=== PATIENT | female | born 1975 | race Caucasian/White ===

== ENCOUNTER 2019-06-06 04:36 | Day surgery (SDC) | payer OTHER ==
[2019-05-31 14:28] VITALS: BMI 24.5
[2019-06-06] MEDS ORDERED: MIDAZOLAM HCL 2 MG/2 ML SINGLE DOSE VIAL ONE ×2 (14:04)
--- NOTE | 2019-06-06 14:39 | HP ---
Satellite [facility] - Chief Complaint Chief Complaint: right shoulder pain History of Present Illness: right shoulder impingement syndrome History Source: Patient Limitations to Obtaining History: No Limitations - Past Medical History Allergies/Adverse Reactions: Allergies Allergy/AdvReac Type Severity Reaction Status Date / Time No Known Allergies Allergy Verified 06/06/19 13:21 ...LMP: 04/19/19 - Current Medications Current Medications: Home Medications Medication Instructions Recorded Acetaminophen 500 mg PO PRN PRN 05/31/19 Benadryl Capsule - 25 mg PO HS PRN 05/31/19 Satellite Physical Exam - Physical Examination Vital Signs: Vital Signs Period Temp Pulse Resp BP Sys/Lang Pulse Ox Last 24 Hr 98.8 F 65 16 105/55 98 General Appearance: Well Nourished ENT: Clear Lung: Clear to auscultation Heart: Regular rate & rhythm Breasts: Soft Abdomen: Soft Extremities: No edema Satellite Impression/Plan - Impression/Plan Impression: right shoulder impingement syndrome Operative Procedure: right shoulder arthroscopy, decompression Date to be Performed: 06/06/19
[2019-06-06] MEDS ORDERED: PROPOFOL 20 ML ONE ×4 (14:46→16:05)
[2019-06-06] MEDS ORDERED: ceFAZolin SODIUM 1 GM VIAL ONE (14:56)
[2019-06-06] MEDS ORDERED: ceFAZolin SODIUM 1 GM VIAL IVPB ONE (14:57)
[2019-06-06] MEDS ORDERED: DEXAMETHASONE SOD PHOSPHATE 4 MG/1 ML VIAL ONE (15:07)
[2019-06-06] MEDS ORDERED: KETOROLAC TROMETHAMINE 30 MG/1 ML VIAL ONE (15:55)
--- NOTE | 2019-06-06 16:34 | OP ---
Operative Note - Note: Operative Date: 06/06/19 ([facility]) Pre-Operative Diagnosis: right shoulder impingement Operation: right shoulder arthroscopy labral repair, SAD Implants: 2 arthrex pushlocks Post-Operative Diagnosis: Same as Pre-op Surgeon: Garrett Villeda [facility] Agent: Douglas De La Rosa Anesthesiologist/STICK INSERTER: Baljinder Muller Anesthesia: General, Local Specimens Removed: shavings Estimated Blood Loss (mls): 5 Operative Report Dictated: Yes
[2019-06-06] MEDS ORDERED: ONDANSETRON 4 MG/2 ML VIAL IVPUSH PRN (16:54)
[2019-06-06] MEDS ORDERED: oxyCODONE HCL 5 MG TABLET PO PRN (16:54)
[2019-06-06] MEDS ORDERED: LACTATED RINGERS SOLUTION 1,000 ML IV SCH (17:00)
[2019-06-06 19:18] VITALS: BP 101/70; PULSE 69; TEMP 97.7
--- NOTE | 2019-06-06 19:53 | OP ---
DATE OF OPERATION: 06/06/2019 PREOPERATIVE DIAGNOSIS: Right shoulder pain, subacromial improvement. POSTOPERATIVE DIAGNOSIS: Right shoulder pain, subacromial improvement, labral tear. PROCEDURE: Right shoulder arthroscopy, subacromial decompression, arthroscopic labral repair. SURGEON: Mary Holt MD EDGE STAINER: NELL Fallon ANESTHESIOLOGIST: Baljinder Muller MD. ANESTHESIA: Right interscalene block with LMA anesthesia. DRAINS: None. COMPLICATIONS: None. BLOOD LOSS: Minimal. BLOOD GIVEN: None. FLUID REPLACEMENT: 1000 INDICATIONS: The patient is a 44-year-old female with a preoperative diagnosis of significant recurrent right shoulder pain. After understanding the potential risks, complications, alternatives, benefits to surgery versus nonsurgical treatment, the patient elected to undergo the procedure. DESCRIPTION OF PROCEDURE: The patient was brought to the operating room. Peripheral IV place. IV sedation given. Right interscalene block was performed. Ancef 1 g was given. She was placed into the beach chair position with ample padding throughout. LMA anesthesia was induced. The right upper extremity was prepped and draped in a usual sterile fashion. The bony landmarks were marked out with a marking pen. A posterior portal was established with a No. 11 scalpel blade. Arthroscope was introduced into the glenohumeral joint, and a diagnostic glenohumeral arthroscopy was performed. Immediately it was apparent the patient had a very large anterior labral tear from 12 o'clock to 4 o'clock. Therefore, an anterior portal was established. A probe was introduced into the glenohumeral joint. I was able to confirm that the patient had a very large labral tear. The labrum was completely off from the 12 o'clock to the 4 o'clock position. The rest of the joint looked good including the glenoid, the humeral head. There was no osteoarthritis. The biceps tendon looked good. The under surface of the rotator cuff looked good. Photographs were taken. Next, a 2nd anterior portal was established under direct visualization using a spinal needle, and using a standard technique, 2 Arthrex PushLock labral repair anchors were placed into the rim of the glenoid grabbing the labrum, brining it down to its bony bed. It came down quite nicely. There was a lot of good labral tissue to repair. Afterwards, I was able to photograph the repair and our attention turned to the subacromial space. A lateral portal was established under direct visualization using a spinal needle. The patient had a huge bony spur under the acromion, no spurring to the distal clavicle, and a tremendous amount of inflammatory bursitis. A soft tissue bursectomy was performed with the ArthroCare wand. After this extensive debridement including subacromion and subdeltoid bursa, I was able to visualize the top surface of the rotator cuff and put the arm through a full range of motion. There was no top surface rotator cuff tear; and therefore, the patient would not need a rotator cuff repair. I continued to clean off the bone spur, which was quite large. Next, I used the 5.5-mm oval bur and then fine tuned it in reverse and with the shaver to do a subacromial bony decompression. I used the shaver to remove all soft tissue debris. Put the arm through a full range of motion. I could directly visualize that there were no points of compression over the rotator cuff. I then evaluated the AC joint in the distal clavicle, and nothing needed to be done in that area. The area was copiously irrigated and washed out. All instrumentation and debris were removed. Total operative time was about 55 minutes. There were no complications during the case. The 3 incisions were closed with 3-0 nylon sutures. The area was then washed and dried, covered with Aquacel dressing. That was prior to putting on the shoulder immobilizer. The patient tolerated the procedure quite well and was given 700 mL of Plasma-Lyte, extubated, brought down out of beach chair position, and brought to the ambulatory recovery room in stable condition. MARY HOLT M.D. [id number]
--- NOTE | 2019-06-08 16:25 | PATH ---
Surgical Pathology Report Patient Name: MICHELL WILKERSON [facility]. Rec. #: [id number] /Age/Gender: 1975 (Age: 44) / F Account: [id number] Location: [facility] SURGICAL Taken: 06/06/2019 Received: 06/07/2019 Reported: 06/08/2019 Physicians: Garrett Villeda M.D. Specimen(s) Received RIGHT SHOULDER DEBRIDED TISSUE Clinical History Tear right shoulder Final Diagnosis DEBRIDED TISSUE, SHOULDER, RIGHT, ARTHROSCOPY, LABRUM REPAIR, DECOMPRESSION: FRAGMENTS OF BENIGN CARTILAGE, BONE, DENSE FIBROCONNECTIVE TISSUE, ADIPOSE TISSUE, SYNOVIUM, AND SKELETAL MUSCLE. Electronically Signed Mercedes Sam M.D. Gross Description Received in formalin, labeled "debrided tissue from right shoulder," is a 3.5 x 2.7 x 0.4 cm. aggregate of lynn-yellow soft tissue fragments. A investment representative portion is submitted in one cassette. 06/07/2019 [facility]06/07/2019
== END 2019-06-06 19:10 | disposition home or self-care (01) ==
LOC: JASU-SURG 04:36
PROVIDERS: ATTEND Orthopaedic Surgery
PROC: 0RNJ4ZZ Release Right Shoulder Joint, Percutaneous Endoscopic Approach (ICD-10-PCS; 2019-06-06)
PROC: 0RQJ4ZZ Repair Right Shoulder Joint, Percutaneous Endoscopic Approach (ICD-10-PCS; principal; 2019-06-06 14:30)
DX: M24.111 Other articular cartilage disorders, right shoulder (principal); M25.511 Pain in right shoulder; M75.41 Impingement syndrome of right shoulder
CPT/HCPCS: 84703; 88304-TC; 94760

== ENCOUNTER 2023-03-18 12:53 | Emergency (ER) | payer OTHER ==
[2023-03-18 13:19] VITALS: BP 134/95; PULSE 83; RESP 18; TEMP 98.8; BMI 28.1
[2023-03-18] MEDS ORDERED: IBUPROFEN 400 MG TABLET (FP) PO ONE ×2 (13:40→13:41)
== END 2023-03-18 15:56 | disposition home or self-care (01) ==
LOC: JERFT 12:53
DX: S96.911A Strain of unspecified muscle and tendon at ankle and foot level, right foot, initial encounter (principal); X50.0XXA Overexertion from strenuous movement or load, initial encounter; Y93.E5 Activity, floor mopping and cleaning
CPT/HCPCS: 93971-TC; 99284-25